=== PATIENT | female | born 1945 | race African-American/Black ===

== ENCOUNTER 2016-09-24 16:41 | Inpatient (IN) | payer MEDICARE, OTHER ==
--- NOTE | ~2016-09-24 | HP ---
History And Physical [address] [address] [place]. [address] NAME: PHILLIP LR : 47 STATUS : ADM IN [facility]#: [id number] AGE: 71 ADM/REG DATE : 09/24/16 MR#: [id number] REPORT SERV DATE: 09/25/16 DICTATED BY: ASMITA EASTON DATE: 09/25/16 REPORT STATUS : Draft TRANSCRIBED BY: MODL DATE: 09/25/16 DATE OF ADMISSION: 09/24/2016 POINT OF ENTRY: [facility] Emergency Department. PRIMARY PERINATAL EDUCATOR: Dr. Elliott. CHIEF COMPLAINT: Weakness, diffuse body pain, and anorexia. HISTORY OF PRESENT ILLNESS: Ms. Lr is a 71-year-old female with a history of hypertension, chronic kidney stage 3 to stage 4 with recent baseline creatinine of approximately 3 as well as borderline diabetes and a reported history of congestive heart failure type unknown, who presents to the emergency department today with reports of diffuse body pain, weakness, dehydration, as well as anorexia. The patient states that her symptoms began about two to three weeks ago after she was placed on a course of antibiotics as well as steroids for an infection, which she thinks was in her GI tract. She states that she started to develop very severe thrush as a result of the antibiotics and steroids, which prohibited her from taking any significant amount of oral intake including food and water secondary to severe odynophagia from her thrush. She states that for the past week, she has had almost no intake secondary to thrush, but does report still taking her pain medications. She was recently started on some medications for thrush with some improvement over the last few days in her symptoms; however, she states that she still has been unable to tolerate any oral intake secondary to a metallic taste to whatever she tries to consume. The patient also reports some vague sensation of abdominal pain with some associated nausea as well as some diarrhea. As a result of the poor oral intake, the patient does endorse some decreased urinary output as well as darkening of her urine, but she reports that she is still making urine. The patient also reports some troubles with shortness of breath, but denies any fevers, night sweats, chills, cough, sputum production, or wheezing. She also reports she has diffuse weakness, fatigue, tiredness, as well as diffuse muscle aches and pains, as well as some paresthesias in her lower extremities. Initial evaluation in the emergency department is notable for a potassium of 8.5 with a BUN of 131, a creatinine of 5.8, and a bicarb of 15. EKG was abnormal. She was given some temporizing measures for hyperkalemia and then transferred to the operating room for placement of a right IJ PermCath by Vascular Surgery. She then underwent two hours of hemodialysis with post HD labs showing a potassium of 4.9 and a creatinine of 2.94. She was subsequently admitted to the Hospitalist Service for further evaluation and management. COMPREHENSIVE REVIEW OF SYSTEMS: Otherwise negative unless listed in history of present illness. PREVIOUS MEDICAL HISTORY: 1. Chronic kidney disease stage 3 to stage 4. Most recent creatinine is 3.1 from 08/2016, History And Physical [address] [address] NAME: PHILLIP LR : 47 STATUS : ADM IN [facility]#: [id number] AGE: 71 ADM/REG DATE : 09/24/16 MR#: [id number] REPORT SERV DATE: 09/25/16 DICTATED BY: ASMITA EASTON DATE: 09/25/16 REPORT STATUS : Draft TRANSCRIBED BY: FELIBERTO DATE: 09/25/[address] Elliott. 2. Hypertension. 3. Borderline diabetes, not on medications. 4. Asthma. 5. Chronic anemia. 6. Reported history of congestive heart failure, type unknown. SURGICAL HISTORY: 1. Appendectomy. 2. Cholecystectomy. 3. Abdominal hysterectomy with bilateral salpingo-oophorectomy. ALLERGIES: PENICILLIN AND SHELLFISH. HOME MEDICATIONS: 1. Albuterol two puff inhalation p.r.n. 2. Allopurinol 100 mg daily. 3. Artificial tears one drop b.i.d. p.r.n. 4. Zyrtec 10 mg daily. 5. Vitamin D 10,000 units weekly. 6. Cymbalta 60 mg daily. 7. EpiPen p.r.n. 8. Advair Diskus one puff inhalation b.i.d. 9. Lasix 80 mg daily. 10.Glencoe 5/325 one tab b.i.d. 11.Plaquenil 200 mg b.i.d. 12.Lisinopril/hydrochlorothiazide 20/25 one tab daily. 13.Omeprazole 20 mg daily. 14.Potassium chloride 20 mEq b.i.d. 15.Iron over the counter. 16.Echinacea one tab over the counter. SOCIAL HISTORY: Denies any tobacco, alcohol, or illicits. FAMILY MEDICAL HISTORY: Mother with history of lymphoma, father with hypertension, siblings with history of prostate as well as pancreatic cancer. LABS AND IMAGIN. Initial ER labs notable for a BUN of 131, creatinine of 5.79, potassium 8.5, and a bicarb of 15. 2. Repeat BMP shows sodium of 143, potassium 4.9, chloride 110, carbon dioxide 23, BUN 76, creatinine 2.94, glucose is 105, and a calcium of 8.2. 3. White count is 11.4, hemoglobin 11.6, hematocrit is 36.1, platelet count is 302. 4. Urinalysis, specific gravity was 1.013 hazy with trace leukocyte esterase with 34 white blood cells per high-powered field with 10 epithelial cells. 5. EKG per my review shows normal sinus rhythm with occasional PVCs as well as some pronounced S waves in the anterolateral leads with some ST depressions, but no acute T- History And Physical [address] [address] NAME: PHILLIP LR : 47 STATUS : ADM IN [facility]#: [id number] AGE: 71 ADM/REG DATE : 09/24/16 MR#: [id number] REPORT SERV DATE: 09/25/16 DICTATED BY: ASMITA EASTON DATE: 09/25/16 REPORT STATUS : Draft TRANSCRIBED BY: [facility] DATE: 09/25/16 waves or QRS or QT prolongation. PHYSICAL EXAMINATION: VITAL SIGNS: Temperature is 97.3 degrees Fahrenheit, pulse is 81, respirations 16, saturating 100% on 2 L of nasal cannula, blood pressure is 101/58. GENERAL: The patient is awake, alert, in no acute distress, resting comfortably in bed. She is an obese elderly female. Family is at bedside. HEENT: Atraumatic and normocephalic. Somewhat dry mucous membranes. I do not appreciate any active thrush at this time under her tongue or oropharyngeal tissues. NECK: No jugular venous distention. No carotid bruits. CARDIAC: Regular rate and rhythm. No murmurs, rubs, or gallops. Normal S1, normal S2. LUNGS: Clear to auscultation bilaterally. No wheezes, rhonchi, or crackles. ABDOMEN: Obese, soft, somewhat tender to palpation in bilateral lower quadrants. No rebound, guarding, or rigidity. EXTREMITIES: Warm and well perfused with 1+ lower extremity edema, but they are tender to the touch. SKIN: Warm and dry. PSYCH: Affect appropriate. NEURO: Alert and oriented x3. Cranial nerves 2 through 12 grossly intact. Speech is normal. Gait not assessed. ASSESSMENT AND PLAN: Ms. Lr is a 71-year-old female with a history of chronic kidney disease stage 3 to 4 as well as hypertension, who presents with a few-week history of feeling poorly as well as with thrush with poor oral intake and found to have acute kidney injury with associated hyperkalemia. PROBLEM LIST: 1. Acute kidney injury, on chronic kidney disease stage 4. 2. Hyperkalemia. 3. Metabolic acidosis. 4. Thrush. 5. Abdominal pain with nausea, vomiting, and diarrhea. 6. Anorexia. 7. Shortness of breath. 8. Hypertension. 9. Urinary tract infection. PLAN: 1. Acute kidney injury on chronic kidney disease stage 4. Given the patient's hyperkalemia as well as profound metabolic acidosis, she underwent PermCath placement as well as underwent hemodialysis today. We will defer to Nephrology for remainder of managing her acute kidney injury, likely all secondary to poor oral intake as well as contribution from her medications in the setting of chronic kidney disease. We will hold the patient's nephrotoxic medications, provide IV fluid hydration, checking urine lytes as well. 2. Hyperkalemia, now resolved status post hemodialysis. Holding the patient's MIKI inhibitor as well as potassium supplementation. We will repeat EKG now that potassium History And Physical [address] [place]. [address] NAME: PHILLIP LR : 47 STATUS : ADM IN [facility]#: [id number] AGE: 71 ADM/REG DATE : 09/24/16 MR#: [id number] REPORT SERV DATE: 09/25/16 DICTATED BY: ASMITA EASTON DATE: 03/23/17 REPORT STATUS : Draft TRANSCRIBED BY: FELIBERTO DATE: 09/25/16 has corrected. Continue cardiac telemetry monitoring. 3. Thrush. I do not appreciate any evidence of thrush at this time, but will continue oral nystatin therapy. 4. Abdominal pain, nausea, vomiting, and diarrhea. Unclear etiology of the patient's GI symptoms. We will check a CT of the abdomen and pelvis, as her labs are otherwise unremarkable. 5. Shortness of breath. She appears to be clear on exam, but we will check a chest x-ray. 6. Hypertension. Holding the patient's lisinopril/ hydrochlorothiazide given her renal failure and hyperkalemia. We will continue to monitor. IV hydralazine p.r.n. for elevated blood pressure. 7. Urinary tract infection. The patient does have some pyuria in her urine. We will place her on some IV Rocephin. 8. DVT prophylaxis. Heparin subcu given acute kidney injury. CODE STATUS: The patient wished to be full code. COREEN/FELIBERTO Asmita Easton MD / [id number] CC: MD Reji Nelson M.D. Joseph Watlington, M.D.
--- NOTE | ~2016-09-24 | DS ---
Discharge Summary [facility] [address] [facility] [place]. [address] NAME: PHILLIP LR : 47 STATUS : DIS IN PAT#: [id number] AGE: 71 ADM/REG DATE : 09/24/16 MR#: [id number] REPORT SERV DATE: 10/02/16 DICTATED BY: DEVYN SANTA DATE: 10/01/16 REPORT STATUS : Draft TRANSCRIBED BY: FELIBERTO DATE: 10/01/16 ADMISSION DATE: 09/24/2016 DISCHARGE DATE: 10/01/2016 Please refer to interim discharge summary dictated by Dr. Veras on 09/28/2016. I assumed care of the patient on 09/30/2016. At the time of my assumption of care Nephrology and Vascular Surgery were already on the case. The patient had her last hemodialysis on 09/27/2016. At the time of my assumption of care the patient was hemodynamically stable. Her creatinine had progressively trended down prompting Nephrology to discontinue hemodialysis and her PermCath was removed. Given her apparent recovery of her kidney the patient no longer requires hemodialysis. She has remained hemodynamically stable with continuously improving kidney function. Given her hemodynamic stability I am giving completion of workup, the patient will be discharged today. Of note, during her hospital course, the patient was diagnosed with diabetes with an A1c of 6.5; however, during this hospitalization the patient's fasting blood glucose has remained normal. Given that her blood sugar was normal and given the abnormality of her A1c per guidelines a repeat of hemoglobin A1c was ordered. Her repeated hemoglobin A1c was 6.0. Given that this hemoglobin level does not meet diagnostic criteria for diabetes and given her normal fasting blood glucose the patient does not have diabetes type 2. DISCHARGE DIAGNOSES: 1. Urinary tract infection. 2. Acute kidney injury. 3. Hypertension. 4. Abdominal pain. 5. Nausea and vomiting. 6. Morbid obesity. 7. Hypertension. CONSULTANTS: 1. Rohti La M.D., Vascular Surgery. 2. Nephrology. DISPOSITION: The patient will be discharged home with home PT. ACTIVITY: As tolerated. DIET: Low-salt diet. Greater than 30 minutes were spent coordinating discharge, dictation of note, medication reconciliation, providing counseling. MELISSA Discharge Summary [place] [address] [place] [address] NAME: PHILLIP LR : 47 STATUS : DIS IN PAT#: [id number] AGE: 71 ADM/REG DATE : 09/24/16 MR#: [id number] REPORT SERV DATE: 10/02/16 DICTATED BY: DEVYN SANTA DATE: 10/01/16 REPORT STATUS : Draft TRANSCRIBED BY: MODL DATE: 10/01/16 Devyn Santa MD / [id number] CC: MD Reji Jordan M.D.
--- NOTE | ~2016-09-24 | HP ---
History And Physical [address] [place]. [address] NAME: PHILLIP LR : 47 STATUS : ADM IN [facility]#: [id number] AGE: 71 ADM/REG DATE : 09/24/16 MR#: [id number] REPORT SERV DATE: 09/25/16 DICTATED BY: NAIMA GARNER DATE: 09/24/16 REPORT STATUS : Draft TRANSCRIBED BY: MODL DATE: 09/24/16 DATE OF ADMISSION: 09/24/2016 REASON FOR CONSULT: Acute kidney injury and hyperkalemia. HISTORY OF PRESENT ILLNESS: The patient is a 71-year-old female with known chronic kidney disease that has been extremely bad for approximately past seven days. The patient came in to the [facility] Emergency Department. The patient was found to have a potassium of 8.5. We were asked to see her in consultation for emergent hemodialysis and further management. History comes from the medical record. The patient really does not give much in the way of history, she is conversant though. Blood pressure was 140/89 when she arrived in the emergency department. PAST MEDICAL HISTORY: Significant for asthma, CHF, hypertension, chronic kidney disease, reflux, diabetes, arthritis, and anemia. ALLERGIES: SHE HAS ALLERGIES REPORTED TO US, PENICILLIN AND SHELLFISH. HOME MEDICATIONS: Consisted of lisinopril, hydrocodone, Lasix, Tylenol, allopurinol, potassium, cetirizine, albuterol, fluticasone, and Advair. FAMILY HISTORY: Positive for cancer. SOCIAL HISTORY: She is , lives with her spouse. No reported alcohol or tobacco use and abuse. REVIEW OF SYSTEMS: The patient describes in the emergency department nausea, vomiting, abdominal pain, diarrhea, cough, and chills. PHYSICAL EXAMINATION: GENERAL: She was seen in the dialysis unit currently undergoing emergent hemodialysis. She is an obese, female, arousable in no acute distress. HEENT: Head is atraumatic, normocephalic. Extraocular movements are intact. NECK: Soft and supple. Mucous membranes are dry. RESPIRATORY: Clear to auscultation, nonlabored. She does have a right tunneled dialysis catheter. CARDIOVASCULAR: Regular rate and rhythm without murmurs. ABDOMEN: Obese, soft, minimal tenderness. SKIN: Warm and dry. She has no peripheral edema. PSYCH: mood, affect, behavior. LABORATORY DATA: Reveals a BUN of 131, potassium 8.5, and a creatinine of 5.8 with a bicarb of 15. Her baseline creatinine a year ago was 1.65. IMPRESSION AND PLAN: This is a 71-year-old female with reportedly nausea, vomiting, and History And Physical [address] [address] NAME: PHILLIP LR : 47 STATUS : ADM IN PAT#: [id number] AGE: 71 ADM/REG DATE : 09/24/16 MR#: [id number] REPORT SERV DATE: 09/25/16 DICTATED BY: NAIMA GARNER DATE: 09/24/16 REPORT STATUS : Draft TRANSCRIBED BY: FELIBERTO DATE: 09/24/16 diarrhea for approximately seven days, feeling bad with acidosis and hyperkalemia, currently undergoing emergent hemodialysis. A new catheter was placed this evening by Dr. La. The patient is tolerating her hemodialysis treatment well. We will continue dialysis tonight initial 1 hour on a zero K bath to decrease the potassium. We will repeat her labs and check. We will plan for hemodialysis again in the morning. We will continue to monitor her renal function for possible recovery. RS/FELIBERTO Naima Garner M.D. / [id number] CC: MD Reji Nelson M.D.
--- NOTE | ~2016-09-24 | IDS ---
Interim Discharge Summary [facility] [address] [place]. [address] NAME: PHILLIP LR : 47 STATUS : ADM IN PAT#: [id number] AGE: 71 ADM/REG DATE : 09/24/16 MR#: [id number] REPORT SERV DATE: 09/28/16 DICTATED BY: DATE: REPORT STATUS : Draft TRANSCRIBED BY: MODL DATE: 09/28/16 ADMISSION DATE: 09/24/2016 DISCHARGE DATE: CURRENT INTERIM DISCHARGE DIAGNOSES: 1. Acute kidney injury on chronic kidney disease stage 4. 2. Diabetes mellitus type 2. 3. Urinary tract infection. 4. Abdominal pain. 5. Nausea and vomiting. 6. Hypertension. 7. Asthma. 8. Rheumatoid arthritis. 9. Thrush. 10.Constipation. HISTORY OF PRESENT ILLNESS: This is a 71-year-old black female with known chronic kidney disease, who came in to the ER with complaint of weakness, diffuse body pain, and anorexia. Please see admission H and P by Dr. Nate Sosa on 09/24/2016. The patient states she has been on antibiotics and steroids for an infection, which resulted in getting thrush. As a result, the patient had decreased food intake. The patient's initial ER labs were BUN of 131, creatinine 5.79, and potassium at 8.5. The patient was taken immediately to the OR where she underwent a PermCath replacement on the right side, as well as hemodialysis. The patient continues to have intermittent hemodialysis with her current labs being sodium 142, potassium 3.8, chloride 105, BUN 16, creatinine 2.28, GFR 25. Glucose 92, magnesium 2.2. WBC is 10.5, hemoglobin 9.2, hematocrit 27.6. The patient has had a dialysis approximately every other day during her stay. Last dialysis was on 09/27. On first and second dialysis, the patient had severe nausea and vomiting, which seems to have resolved as the patient progresses and also due to scopolamine patch placement. The patient also has a history of asthma, for which she is on albuterol and Advair. We had to discontinue the patient's Plaquenil due to her renal disease. The patient has a UTI, for which she is still running low-grade temp. T-max in the last 24 hours was 99.3. She has been on Rocephin for three days now. The patient has diabetes mellitus. Her A1c is 6.5. The patient is not on any treatment for this and her current blood sugars run between the 80s and low 100s. The patient is not eating well due to hospital food and lack of appetite. The patient has had diabetic education and states understanding. The patient's usual hypertension has been well controlled during her stay running between the high 90s to 130s over 50s and 60s. The patient does not get much out-of-bed activity due to no chairs available due to the large number of visitors. The patient's HIV 4 has come back reactive and we have extended that to the HIV 1 and 2. If these end up being negative, we will have an additional lab performed and HIV 1 RNA. Infectious Diseases nurse is aware. We are still awaiting the results from these labs. The patient has had a CT of the abdomen and pelvis, which showed no acute abnormality. It has not been determined whether patient will need dialysis on an outpatient basis. Interim Discharge Summary [address] [address] NAME: PHILLIP LR : 47 STATUS : ADM IN PAT#: [id number] AGE: 71 ADM/REG DATE : 09/24/16 MR#: [id number] REPORT SERV DATE: 09/28/16 DICTATED BY: DATE: REPORT STATUS : Draft TRANSCRIBED BY: FELIBERTO DATE: 09/28/16 RENEE/FELIBERTO Tracey Kimbrough NP / [id number] CC: MD Reji Nelson M.D.
--- NOTE | ~2016-09-24 | OP ---
Record Of Operation [facility] [address] [place]. [address] NAME: PHILLIP LR : 47 STATUS : REG ER PAT#: [id number] AGE: 71 ADM/REG DATE : 09/24/16 MR#: [id number] REPORT SERV DATE: 09/24/16 DICTATED BY: BIJU LA JR. DATE: 09/24/16 REPORT STATUS : Draft TRANSCRIBED BY: MODL DATE: 09/24/16 DATE OF PROCEDURE: 09/24/2016 PREOPERATIVE DIAGNOSIS: End-stage renal disease. POSTOPERATIVE DIAGNOSIS: End-stage renal disease. OPERATIONS: Right internal jugular vein PermCath catheter. SURGEON: Biju La M.D. HISTORY: This is a 71-year-old, black female, who has known renal insufficiency who presented to the emergency room with a BUN of 130 and a potassium of 8. PROCEDURE IN DETAIL: The patient was placed on the operating room table. The right side of the neck is prepped and draped in the usual sterile manner. A long needle was used to find the right internal jugular vein, which was easily found. A wire was passed down the right side of the heart. This was confirmed with fluoroscopy. A PermCath catheter was brought through a stab wound below the right clavicle, up into the neck incision, and down into a tear-away introducer. The fluoro machine was used to confirm good positioning without kinking. The catheter was irrigated with heparinized saline and sutured into place. The patient tolerated procedure well, was taken back to recovery room in fair condition. There were no intraoperative complications. ESTIMATED BLOOD LOSS: Negligible. DF/MODL Biju La Jr., M.D. / [id number] CC: Reji Acosta M.D.
[2016-09-24 15:37] LABS: BASOPHILS 0.2 %; BASOPHILS ABSOLUTE 0.02 10/3/uL (0.0-0.16); EOSINOPHILS 1.1 %; EOSINOPHILS ABSOLUTE 0.13 10/3/uL (0.0-0.53); HEMATOCRIT 36.1 % (36.0-48.0); HEMOGLOBIN 11.6 g/dL (12.0-16.0); IMMATURE GRANULOCYTES 0.3 %; IMMATURE GRANULOCYTES ABSOLUTE 0.03 10/3/uL (0.0-0.11); LYMPHOCYTES 19.9 %; LYMPHOCYTES ABSOLUTE 2.27 10/3/uL (0.67-4.30); MANUAL DIFF NO %; MEAN CORPUS HGB CONC 32.1 g/dL (32.0-36.0); MEAN CORPUSCULAR VOLUME 96.5 fL (80-100); MONOCYTES ABSOLUTE 0.46 10/3/uL (0.21-1.20); NEUTROPHILS 74.5 %; NEUTROPHILS ABSOLUTE 8.51 10/3/uL (2.02-8.40); PLATELET COUNT 302 10/3/uL (150-400); RBC DISTRIBUTION WIDTH 15.5 % (12.0-16.0); RED CELL COUNT 3.74 10/6/uL (4.0-5.6); WHITE BLOOD CELLS 11.4 10/3/uL (4.5-10.5)
[2016-09-24 15:50] LABS: ASCORBIC ACID (UR NOT ORDER) NEG (NEG); BILIRUBIN, URINE NEGATIVE (NEG); KETONE, URINE NEGATIVE (NEG); LEUKOCYTE ESTERASE(NOT OR LARGE (NEG); NITRITE (URINE) NEG (NEG); WBC (NOT ORDERED) (RFLEX) 34 (0-5)
[~2016-09-24 16:41] MED LIST: ACET500CAP PO; ADVAIR250 INH; CALTRA600D PO; ECHINACEA PO; FLAG500TAB PO; GYNODIOL0.5 MG PO; IRON; IRON PO; JANUVIA100 MG PO; KLOR-CON M2020 MEQ PO; L40 PO; L80 PO; LEVAQUIN750 MG PO; MICRO-K10 MEQ PO; NORCO1 TA1 PO; PLAQ200B PO; PRILO PO; PROAIR HFA INH; ULTRAM50 PO; VITAMIN D31000 UNIT PO; Z100 PO; ZESTORETIC1 TA1 PO; ZYRTEC ALLGY10 MG PO
[2016-09-24 16:49] LABS: ALBUMIN 3.7 G/DL (3.5-5.0); CALCIUM, SERUM 9.5 MG/DL (8.5-10.4); CHLORIDE, SERUM 115 MMOL/L (96-112); GLUCOSE, SERUM 79 MG/DL (60-99); POTASSIUM, SERUM 8.5 MMOL/L (3.5-5.3); SGOT(AST) 21 U/L (5-40); SGPT(ALT) 32 U/L (5-65); SODIUM, SERUM 139 MMOL/L (135-148); TOTAL BILIRUBIN 0.4 MG/DL (0-1.2); TOTAL PROTEIN 8.3 G/DL (6.0-8.5)
[2016-09-24 16:50] LABS: A/G RATIO 0.8 (0.7-1.9); ALKALINE PHOSPHATASE 68 U/L (45-117); BUN (BLOOD UREA NITROGEN) 131 MG/DL (6-23); CO2 (CARBON DIOXIDE) 15 MMOL/L (24-34); CREATININE 5.79 MG/DL (0.55-1.02); GFR AFRICAN AMERICAN 8 ML/MIN (>=60); GFR NON AFRICAN AMERICAN 7 ML/MIN (>=60); GLOBULIN 4.6 G/DL (2.5-4.1)
[2016-09-24 21:15] LABS: ALBUMIN 3.6 G/DL (3.5-5.0); BUN (BLOOD UREA NITROGEN) 76 MG/DL (6-23); CALCIUM, SERUM 8.2 MG/DL (8.5-10.4); CHLORIDE, SERUM 110 MMOL/L (96-112); CO2 (CARBON DIOXIDE) 23 MMOL/L (24-34); CREATININE 2.94 MG/DL (0.55-1.02); GFR AFRICAN AMERICAN 18 ML/MIN (>=60); GFR NON AFRICAN AMERICAN 16 ML/MIN (>=60); GLUCOSE, SERUM 105 MG/DL (60-99); PHOSPHORUS, SERUM 2.8 MG/DL (2.5-4.5); POTASSIUM, SERUM 4.9 MMOL/L (3.5-5.3); SODIUM, SERUM 143 MMOL/L (135-148)
[2016-09-25] MEDS ORDERED: TEARS PURE OPH (00:04)
[2016-09-25] MEDS ORDERED: PRILO PO (00:05)
[2016-09-25] MEDS ORDERED: Z100 PO (00:05)
[2016-09-25] MEDS ORDERED: PLAQ200B PO (00:05)
[2016-09-25] MEDS ORDERED: ZYRTEC ALLGY10 MG PO (00:05)
[2016-09-25] MEDS ORDERED: NORCO1 TA1 PO (00:05)
[2016-09-25] MEDS ORDERED: L80 PO (00:05)
[2016-09-25] MEDS ORDERED: IRON PO (00:06)
[2016-09-25] MEDS ORDERED: CYMBALTA60 PO (00:06)
[2016-09-25] MEDS ORDERED: KDUR20 PO (00:06)
[2016-09-25] MEDS ORDERED: ECHINACEA PO (00:07)
[2016-09-25] MEDS ORDERED: ZESTORETIC1 TA1 PO (00:07)
[2016-09-25] MEDS ORDERED: ADVAIR250 INH (00:07)
[2016-09-25] MEDS ORDERED: MAXIMUM D3 PO (00:07)
[2016-09-25] MEDS ORDERED: PROAIR HFA INH (00:08)
[2016-09-25] MEDS ORDERED: EPIPEN0.3 IM (00:12)
[2016-09-25 07:10] LABS: BASOPHILS 0.2 %; BASOPHILS ABSOLUTE 0.02 10/3/uL (0.0-0.16); EOSINOPHILS ABSOLUTE 0.19 10/3/uL (0.0-0.53); IMMATURE GRANULOCYTES 0.3 %; IMMATURE GRANULOCYTES ABSOLUTE 0.03 10/3/uL (0.0-0.11); LYMPHOCYTES 22.4 %; LYMPHOCYTES ABSOLUTE 2.15 10/3/uL (0.67-4.30); MEAN CORPUSCULAR HEMOGLOB 30.3 pg (26.0-34.0); MEAN CORPUSCULAR VOLUME 94.7 fL (80-100); MEAN PLATELET VOLUME 8.9 fL (9.2-13.0); MONOCYTES 8.8 %; MONOCYTES ABSOLUTE 0.84 10/3/uL (0.21-1.20); NEUTROPHILS 66.3 %; NEUTROPHILS ABSOLUTE 6.35 10/3/uL (2.02-8.40); RBC DISTRIBUTION WIDTH 15.3 % (12.0-16.0); WHITE BLOOD CELLS 9.6 10/3/uL (4.5-10.5)
[2016-09-25 07:11] LABS: HEMATOCRIT 28.4 % (36.0-48.0); HEMOGLOBIN 9.1 g/dL (12.0-16.0); PLATELET COUNT 209 10/3/uL (150-400)
[2016-09-25 07:12] LABS: MANUAL DIFF NO %
[2016-09-25 07:29] LABS: CPK 148 U/L (0-200); IRON, SERUM 108 MCG/DL (35-150); POTASSIUM, SERUM 5.8 MMOL/L (3.5-5.3); SODIUM, SERUM 143 MMOL/L (135-148)
[2016-09-25 07:36] LABS: HEPATITIS B SURFACE ANTIGEN NON-REACTIVE (NON-REACT)
[2016-09-25 07:51] LABS: ALBUMIN 3.2 G/DL (3.5-5.0); CALCIUM, SERUM 8.2 MG/DL (8.5-10.4); CHLORIDE, SERUM 111 MMOL/L (96-112); CO2 (CARBON DIOXIDE) 22 MMOL/L (24-34); CREATININE 3.01 MG/DL (0.55-1.02); GFR AFRICAN AMERICAN 18 ML/MIN (>=60); GFR NON AFRICAN AMERICAN 15 ML/MIN (>=60)
[2016-09-25 07:52] LABS: BUN (BLOOD UREA NITROGEN) 66 MG/DL (6-23); GLUCOSE, SERUM 57 MG/DL (60-99); PHOSPHORUS, SERUM 3.8 MG/DL (2.5-4.5); ULTRASENSITIVE TSH 0.133 MCIU/ML (0.358-3.740)
[2016-09-25 08:04] LABS: HEPATITIS B CORE AB IGM NON-REACTIVE (NON-REAC); HEPATITIS C ANTIBODY NON-REACTIVE (NON-REACT)
[2016-09-25 08:06] LABS: HEP A ANTIBODY IGM NON-REACTIVE (NON-REACT)
[2016-09-25 10:43] LABS: HIV COMBO REACTIVE (NON REAC)
[2016-09-26 04:25] LABS: BASOPHILS 0.2 %; BASOPHILS ABSOLUTE 0.02 10/3/uL (0.0-0.16); EOSINOPHILS ABSOLUTE 0.16 10/3/uL (0.0-0.53); HEMATOCRIT 28.2 % (36.0-48.0); HEMOGLOBIN 9.3 g/dL (12.0-16.0); IMMATURE GRANULOCYTES 0.1 %; IMMATURE GRANULOCYTES ABSOLUTE 0.01 10/3/uL (0.0-0.11); LYMPHOCYTES 19.5 %; LYMPHOCYTES ABSOLUTE 1.57 10/3/uL (0.67-4.30); MEAN CORPUSCULAR HEMOGLOB 30.9 pg (26.0-34.0); MEAN CORPUSCULAR VOLUME 93.7 fL (80-100); MEAN PLATELET VOLUME 9.4 fL (9.2-13.0); MONOCYTES ABSOLUTE 0.81 10/3/uL (0.21-1.20); NEUTROPHILS 68.2 %; NEUTROPHILS ABSOLUTE 5.49 10/3/uL (2.02-8.40); PLATELET COUNT 201 10/3/uL (150-400); RBC DISTRIBUTION WIDTH 14.8 % (12.0-16.0); RED CELL COUNT 3.01 10/6/uL (4.0-5.6); WHITE BLOOD CELLS 8.1 10/3/uL (4.5-10.5)
[2016-09-26 04:35] LABS: ALBUMIN 3.2 G/DL (3.5-5.0); CALCIUM, SERUM 8.2 MG/DL (8.5-10.4); CHLORIDE, SERUM 108 MMOL/L (96-112); PHOSPHORUS, SERUM 3.1 MG/DL (2.5-4.5); POTASSIUM, SERUM 4.9 MMOL/L (3.5-5.3); SODIUM, SERUM 143 MMOL/L (135-148)
[2016-09-26 04:39] LABS: BUN (BLOOD UREA NITROGEN) 26 MG/DL (6-23); CO2 (CARBON DIOXIDE) 27 MMOL/L (24-34); GFR AFRICAN AMERICAN 23 ML/MIN (>=60); GFR NON AFRICAN AMERICAN 20 ML/MIN (>=60); GLUCOSE, SERUM 76 MG/DL (60-99)
[2016-09-26 04:44] LABS: MANUAL DIFF NO %
[2016-09-27 05:02] LABS: BASOPHILS 0.2 %; BASOPHILS ABSOLUTE 0.02 10/3/uL (0.0-0.16); EOSINOPHILS ABSOLUTE 0.16 10/3/uL (0.0-0.53); HEMATOCRIT 28.4 % (36.0-48.0); HEMOGLOBIN 9.3 g/dL (12.0-16.0); IMMATURE GRANULOCYTES 0.1 %; IMMATURE GRANULOCYTES ABSOLUTE 0.01 10/3/uL (0.0-0.11); LYMPHOCYTES 21.5 %; LYMPHOCYTES ABSOLUTE 1.75 10/3/uL (0.67-4.30); MEAN CORPUS HGB CONC 32.7 g/dL (32.0-36.0); MEAN CORPUSCULAR HEMOGLOB 30.6 pg (26.0-34.0); MEAN CORPUSCULAR VOLUME 93.4 fL (80-100); MEAN PLATELET VOLUME 9.5 fL (9.2-13.0); MONOCYTES 6.3 %; MONOCYTES ABSOLUTE 0.51 10/3/uL (0.21-1.20); NEUTROPHILS 69.9 %; NEUTROPHILS ABSOLUTE 5.68 10/3/uL (2.02-8.40); PLATELET COUNT 194 10/3/uL (150-400); RBC DISTRIBUTION WIDTH 14.5 % (12.0-16.0); RED CELL COUNT 3.04 10/6/uL (4.0-5.6); WHITE BLOOD CELLS 8.1 10/3/uL (4.5-10.5)
[2016-09-27 05:08] LABS: MANUAL DIFF NO %
[2016-09-27 05:17] LABS: BUN (BLOOD UREA NITROGEN) 28 MG/DL (6-23); CALCIUM, SERUM 8.5 MG/DL (8.5-10.4); CHLORIDE, SERUM 106 MMOL/L (96-112); CO2 (CARBON DIOXIDE) 25 MMOL/L (24-34); CREATININE 2.89 MG/DL (0.55-1.02); GFR AFRICAN AMERICAN 18 ML/MIN (>=60); GFR NON AFRICAN AMERICAN 16 ML/MIN (>=60); GLUCOSE, SERUM 85 MG/DL (60-99); PHOSPHORUS, SERUM 3.6 MG/DL (2.5-4.5); POTASSIUM, SERUM 4.5 MMOL/L (3.5-5.3); SODIUM, SERUM 142 MMOL/L (135-148)
[2016-09-28 05:40] LABS: HEMATOCRIT 27.6 % (36.0-48.0); HEMOGLOBIN 9.2 g/dL (12.0-16.0); MEAN CORPUS HGB CONC 33.3 g/dL (32.0-36.0); MEAN CORPUSCULAR VOLUME 92.9 fL (80-100); MEAN PLATELET VOLUME 9.3 fL (9.2-13.0); PLATELET COUNT 155 10/3/uL (150-400); RBC DISTRIBUTION WIDTH 14.3 % (12.0-16.0); RED CELL COUNT 2.97 10/6/uL (4.0-5.6); WHITE BLOOD CELLS 10.5 10/3/uL (4.5-10.5)
[2016-09-28 05:42] LABS: MANUAL DIFF YES %
[2016-09-28 05:49] LABS: ALBUMIN 2.9 G/DL (3.5-5.0); CHLORIDE, SERUM 105 MMOL/L (96-112); CO2 (CARBON DIOXIDE) 28 MMOL/L (24-34); GFR AFRICAN AMERICAN 25 ML/MIN (>=60); GFR NON AFRICAN AMERICAN 21 ML/MIN (>=60); GLUCOSE, SERUM 92 MG/DL (60-99); PHOSPHORUS, SERUM 2.8 MG/DL (2.5-4.5); POTASSIUM, SERUM 3.8 MMOL/L (3.5-5.3); SODIUM, SERUM 142 MMOL/L (135-148)
[2016-09-28 05:50] LABS: BUN (BLOOD UREA NITROGEN) 16 MG/DL (6-23); CREATININE 2.28 MG/DL (0.55-1.02)
[2016-09-28 06:01] LABS: BASOPHILS 1 %; BASOPHILS ABSOLUTE (CALC) 0.11 10/3/uL (0.0-0.16); EOSINOPHILS 2 %; EOSINOPHILS ABSOLUTE (CALC) 0.21 10/3/uL (0.0-0.53); LYMPHOCYTES 34 %; LYMPHOCYTES ABSOLUTE (CALC) 3.57 10/3/uL (0.67-4.30); MONOCYTES 2 %; MONOCYTES ABSOLUTE (CALC) 0.21 10/3/uL (0.21-1.20); NEUTROPHILS ABSOLUTE (CALC) 6.41 10/3/uL (2.02-8.40); PLATELET ESTIMATE ADQ (ADEQUATE); RBC MORPHOLOGY NORM (NORMAL); SEGMENTED NEUTROPHIL (0) 61 %; TOTAL NUCLEATED CELLS 100
[2016-09-29 06:33] LABS: BASOPHILS 0.3 %; BASOPHILS ABSOLUTE 0.03 10/3/uL (0.0-0.16); EOSINOPHILS 3.7 %; EOSINOPHILS ABSOLUTE 0.36 10/3/uL (0.0-0.53); HEMATOCRIT 26.8 % (36.0-48.0); HEMOGLOBIN 8.7 g/dL (12.0-16.0); IMMATURE GRANULOCYTES 0.3 %; IMMATURE GRANULOCYTES ABSOLUTE 0.03 10/3/uL (0.0-0.11); LYMPHOCYTES ABSOLUTE 2.75 10/3/uL (0.67-4.30); MANUAL DIFF NO %; MEAN CORPUS HGB CONC 32.5 g/dL (32.0-36.0); MEAN CORPUSCULAR VOLUME 95.4 fL (80-100); MEAN PLATELET VOLUME 9.5 fL (9.2-13.0); MONOCYTES 6.9 %; MONOCYTES ABSOLUTE 0.68 10/3/uL (0.21-1.20); NEUTROPHILS 60.8 %; NEUTROPHILS ABSOLUTE 5.96 10/3/uL (2.02-8.40); PLATELET COUNT 156 10/3/uL (150-400); RBC DISTRIBUTION WIDTH 14.2 % (12.0-16.0); RED CELL COUNT 2.81 10/6/uL (4.0-5.6); WHITE BLOOD CELLS 9.8 10/3/uL (4.5-10.5)
[2016-09-29 06:44] LABS: ALBUMIN 2.7 G/DL (3.5-5.0); CHLORIDE, SERUM 101 MMOL/L (96-112); CO2 (CARBON DIOXIDE) 28 MMOL/L (24-34); CREATININE 2.58 MG/DL (0.55-1.02); GFR AFRICAN AMERICAN 21 ML/MIN (>=60); GFR NON AFRICAN AMERICAN 18 ML/MIN (>=60); GLUCOSE, SERUM 89 MG/DL (60-99); PHOSPHORUS, SERUM 3.5 MG/DL (2.5-4.5); POTASSIUM, SERUM 3.7 MMOL/L (3.5-5.3); SODIUM, SERUM 138 MMOL/L (135-148)
[2016-09-29 06:45] LABS: BUN (BLOOD UREA NITROGEN) 24 MG/DL (6-23)
[2016-09-29 16:32] LABS: HIV-1 VIRAL LOAD RESULT Not Detected (NOTDET); HIV-1 VIRAL RESULT Not Detected (())
[2016-09-30 05:25] LABS: BASOPHILS 0.1 %; BASOPHILS ABSOLUTE 0.01 10/3/uL (0.0-0.16); EOSINOPHILS 3.5 %; EOSINOPHILS ABSOLUTE 0.31 10/3/uL (0.0-0.53); HEMATOCRIT 26.9 % (36.0-48.0); HEMOGLOBIN 8.8 g/dL (12.0-16.0); IMMATURE GRANULOCYTES 0.2 %; IMMATURE GRANULOCYTES ABSOLUTE 0.02 10/3/uL (0.0-0.11); LYMPHOCYTES ABSOLUTE 2.05 10/3/uL (0.67-4.30); MEAN CORPUS HGB CONC 32.7 g/dL (32.0-36.0); MEAN CORPUSCULAR VOLUME 94.7 fL (80-100); MEAN PLATELET VOLUME 9.2 fL (9.2-13.0); MONOCYTES 5.5 %; MONOCYTES ABSOLUTE 0.49 10/3/uL (0.21-1.20); NEUTROPHILS 67.7 %; NEUTROPHILS ABSOLUTE 6.02 10/3/uL (2.02-8.40); PLATELET COUNT 143 10/3/uL (150-400); RBC DISTRIBUTION WIDTH 14.1 % (12.0-16.0); RED CELL COUNT 2.84 10/6/uL (4.0-5.6); WHITE BLOOD CELLS 8.9 10/3/uL (4.5-10.5)
[2016-09-30 05:26] LABS: MANUAL DIFF NO %
[2016-09-30 05:40] LABS: ALBUMIN 2.8 G/DL (3.5-5.0); CALCIUM, SERUM 7.9 MG/DL (8.5-10.4); CHLORIDE, SERUM 104 MMOL/L (96-112); CO2 (CARBON DIOXIDE) 28 MMOL/L (24-34); PHOSPHORUS, SERUM 3.9 MG/DL (2.5-4.5); POTASSIUM, SERUM 3.8 MMOL/L (3.5-5.3); SODIUM, SERUM 142 MMOL/L (135-148)
[2016-09-30 06:02] LABS: BUN (BLOOD UREA NITROGEN) 29 MG/DL (6-23); CREATININE 2.05 MG/DL (0.55-1.02); GFR AFRICAN AMERICAN 28 ML/MIN (>=60); GFR NON AFRICAN AMERICAN 24 ML/MIN (>=60); GLUCOSE, SERUM 107 MG/DL (60-99)
[2016-09-30 15:16] LABS: HIV 1 ANTIBODY BY MULTISPOT Negative (NEG); HIV 2 ANTIBODY BY MULTISPOT Negative (NEG)
[2016-10-01 05:31] LABS: BASOPHILS 0.1 %; BASOPHILS ABSOLUTE 0.01 10/3/uL (0.0-0.16); EOSINOPHILS ABSOLUTE 0.28 10/3/uL (0.0-0.53); HEMATOCRIT 25.9 % (36.0-48.0); HEMOGLOBIN 8.3 g/dL (12.0-16.0); IMMATURE GRANULOCYTES 0.4 %; IMMATURE GRANULOCYTES ABSOLUTE 0.04 10/3/uL (0.0-0.11); LYMPHOCYTES 26.4 %; LYMPHOCYTES ABSOLUTE 2.49 10/3/uL (0.67-4.30); MEAN CORPUSCULAR HEMOGLOB 30.5 pg (26.0-34.0); MEAN CORPUSCULAR VOLUME 95.2 fL (80-100); MEAN PLATELET VOLUME 9.5 fL (9.2-13.0); MONOCYTES 7.3 %; MONOCYTES ABSOLUTE 0.69 10/3/uL (0.21-1.20); NEUTROPHILS 62.8 %; NEUTROPHILS ABSOLUTE 5.92 10/3/uL (2.02-8.40); PLATELET COUNT 146 10/3/uL (150-400); RBC DISTRIBUTION WIDTH 14.7 % (12.0-16.0); RED CELL COUNT 2.72 10/6/uL (4.0-5.6); WHITE BLOOD CELLS 9.4 10/3/uL (4.5-10.5)
[2016-10-01 05:32] LABS: MANUAL DIFF NO %
[2016-10-01 07:09] LABS: A/G RATIO 0.8 (0.7-1.9); ALBUMIN 2.7 G/DL (3.5-5.0); ALKALINE PHOSPHATASE 69 U/L (45-117); BUN (BLOOD UREA NITROGEN) 31 MG/DL (6-23); CALCIUM, SERUM 7.9 MG/DL (8.5-10.4); CHLORIDE, SERUM 104 MMOL/L (96-112); CO2 (CARBON DIOXIDE) 29 MMOL/L (24-34); CREATININE 1.88 MG/DL (0.55-1.02); GFR AFRICAN AMERICAN 31 ML/MIN (>=60); GFR NON AFRICAN AMERICAN 27 ML/MIN (>=60); GLUCOSE, SERUM 102 MG/DL (60-99); PHOSPHORUS, SERUM 3.3 MG/DL (2.5-4.5); POTASSIUM, SERUM 3.9 MMOL/L (3.5-5.3); SGOT(AST) 23 U/L (5-40); SGPT(ALT) 29 U/L (5-65); SODIUM, SERUM 142 MMOL/L (135-148); TOTAL BILIRUBIN 0.5 MG/DL (0-1.2)
[2016-10-01 07:10] LABS: GLOBULIN 3.4 G/DL (2.5-4.1); TOTAL PROTEIN 6.1 G/DL (6.0-8.5)
[2016-10-01] MEDS ORDERED: TRANSSCOP TOP (12:47)
== END 2016-10-01 14:27 | disposition home health service (06) | DRG 683 ==
LOC: ER 16:41 → 2SO 21:28
PROVIDERS: Hospitalist; Internal Medicine Nephrology; Nurse Practitioner; Nurse Practitioner Family; Registered Nurse; Surgery
PROC: 05H533Z Insertion of Infusion Device into Right Subclavian Vein, Percutaneous Approach (ICD-10-PCS; principal; 2016-09-24 19:00)
PROC: 5A1D60Z (ICD-10-PCS; 2016-09-25)
PROC: 0JPV0XZ Removal of Tunneled Vascular Access Device from Upper Extremity Subcutaneous Tissue and Fascia, Open Approach (ICD-10-PCS; 2016-09-30)
DX: N17.9 Acute kidney failure, unspecified (principal); E87.2 Acidosis; E11.22 Type 2 diabetes mellitus with diabetic chronic kidney disease; I13.0 Hypertensive heart and chronic kidney disease with heart failure and stage 1 through stage 4 chronic kidney disease, or unspecified chronic kidney disease; I50.9 Heart failure, unspecified; B37.9 Candidiasis, unspecified; Z68.41 Body mass index [BMI] 40.0-44.9, adult; N39.0 Urinary tract infection, site not specified; N18.4 Chronic kidney disease, stage 4 (severe); E87.5 Hyperkalemia; E86.0 Dehydration; E66.01 Morbid (severe) obesity due to excess calories; R11.2 Nausea with vomiting, unspecified; M06.9 Rheumatoid arthritis, unspecified; D64.9 Anemia, unspecified; Z79.899 Other long term (current) drug therapy; Z82.49 Family history of ischemic heart disease and other diseases of the circulatory system; Z80.8 Family history of malignant neoplasm of other organs or systems; Z80.42 Family history of malignant neoplasm of prostate; Z85.72 Personal history of non-Hodgkin lymphomas; Z98.890 Other specified postprocedural states; Z88.0 Allergy status to penicillin; Z91.013 Allergy to seafood; Z80.7 Family history of other malignant neoplasms of lymphoid, hematopoietic and related tissues
CPT/HCPCS: 36558; 71010; 74176; 77001; 80053; 80069; 80074; 81001; 82550; 82570; 82962; 83036; 83540; 83690; 83735; 83935; 84300; 84436; 84443; 85025; 86702; 87077; 87086; 87186; 87389; 87536; 93005; 94640; 96374; 96375; 97116-GP; 97162-GP; 99291; A9270-GY; C1750; G0257; G8978-CL-GP; G8979-CJ-GP; J0282; J0610; J2405; P9047